=== PATIENT | female | born 1990 | race Two or more races ===

== ENCOUNTER 2019-04-30 11:25 | Observation (INO) | payer MEDICAID ==
[~2019-04-30 11:25] MED LIST: ACET-327 GT; PREN1TAB52 PO
[2019-04-30 13:37] VITALS: BP 102/57
[2019-04-30] MEDS ORDERED: INFLUENZA VIRUS VACCINE QVS 2019-20 (3YR+)/PF 60 MCG/0.5 ML SYRINGE IM ONE (13:45)
[2019-05-08] MEDS ORDERED: PREN1TAB80 PO (16:41)
== END 2019-04-30 14:15 | disposition home or self-care (01) ==
LOC: 4S 11:25
PROVIDERS: ADMIT Obstetrics & Gynecology; ATTEND Obstetrics & Gynecology
DX: O62.9 Abnormality of forces of labor, unspecified (principal); Z3A.32 32 weeks gestation of pregnancy

== ENCOUNTER 2019-05-04 21:58 | Observation (INO) | payer MEDICAID ==
[2019-05-05 00:12] VITALS: BP 100/60
[2019-05-08] MEDS ORDERED: PREN1TAB80 PO (16:41)
== END 2019-05-05 04:55 | disposition home or self-care (01) ==
LOC: 4S 21:58
PROVIDERS: ADMIT Obstetrics & Gynecology; ATTEND Obstetrics & Gynecology
DX: O46.8X3 Other antepartum hemorrhage, third trimester (principal); O26.893 Other specified pregnancy related conditions, third trimester; R10.30 Lower abdominal pain, unspecified; Z3A.32 32 weeks gestation of pregnancy
CPT/HCPCS: 76815; 81002; 82731; G0378 ×2

== ENCOUNTER 2019-05-08 16:41 | Observation (INO) | payer MEDICAID ==
[~2019-05-08] VITALS: Ht 162.6 cm; Wt 79.0 kg
[~2019-05-08 16:41] MED LIST changes: +PREN1TAB80 PO
[2019-05-08] MEDS ORDERED: RINGERS SOLUTION,LACTATED 1,000 ML IV SCH (17:15)
[2019-05-08 17:46] LABS: ANION GAP 10 mmol/L (8-16); CARBON DIOXIDE 25 mmol/L (22-29); CHLORIDE 105 mmol/L (98-107); CREATININE 0.52 mg/dL (0.60-1.30); GLOMERULAR FILTR. RATE CALC > 60 mL/min (>60); GLUCOSE,RANDOM 75 mg/dL (70-110); POTASSIUM 4.2 mmol/L (3.5-5.1); SODIUM SERUM 140 mmol/L (136-145); UREA NITROGEN, BLOOD 9 mg/dL (7-18)
[2019-05-08 17:52] LABS: ALANINE AMINOTRANSFERASE 19 U/L (12-78); ALBUMIN 2.6 g/dL (3.4-5.0); ALKALINE PHOSPHATASE 106 U/L (46-116); ASPARTATE AMINOTRANSFERASE 16 U/L (15-37); BILIRUBIN,TOTAL 0.3 mg/dL (0.1-1.0); TOTAL PROTEIN, SERUM 5.8 g/dL (6.4-8.2)
[2019-05-08] MEDS: BETAMETHASONE SOLUSPAN 6 MG/ML 5 ML VIAL IM SCH (18:29)
[2019-05-08 18:36] LABS: APPEARANCE,URINE CLOUDY (CLEAR); GLUCOSE, URINE (UA) 100 mg/dL (NEGATIVE); KETONES,URINE TRACE mg/dL (NEGATIVE); LEUKOCYTE ESTERASE ,URINE MODERATE (NEGATIVE); NITRATE,URINE NEGATIVE (NEGATIVE); OCCULT BLOOD,URINE NEGATIVE (NEGATIVE); PROTEIN,URINE TRACE (NEGATIVE)
[2019-05-08 18:38] LABS: BILIRUBIN,URINE PRELIM. POSITIVE (NEGATIVE)
[2019-05-08 18:57] LABS: BACTERIA,URINE Many /HPF (None Seen); RBC,URINE None Seen /HPF (0-2); SQUAMOUS EPITHELIAL CELL,UR Many /LPF (None Seen)
[2019-05-08 22:14] VITALS: BP 93/52
[2019-05-09] MEDS: BETAMETHASONE SOLUSPAN 6 MG/ML 5 ML VIAL IM SCH (06:31)
== END 2019-05-09 12:15 | disposition home or self-care (01) ==
LOC: 4S 16:41
PROVIDERS: ADMIT Obstetrics & Gynecology; ATTEND Obstetrics & Gynecology
DX: O46.93 Antepartum hemorrhage, unspecified, third trimester (principal); Z3A.32 32 weeks gestation of pregnancy
CPT/HCPCS: 36415; 76805; 80053; 81001; 87086; 96372 ×2; G0378 ×2; J0702 ×2; J7120

== ENCOUNTER 2019-05-16 15:30 | Observation (INO) | payer MEDICAID ==
[~2019-05-16] VITALS: Ht 162.6 cm; Wt 79.8 kg
[~2019-05-16 15:30] MED LIST changes: -ACET-327 GT; -PREN1TAB52 PO
== END 2019-05-16 18:47 | disposition home or self-care (01) ==
LOC: 4S 15:30
PROVIDERS: ADMIT Obstetrics & Gynecology; ATTEND Obstetrics & Gynecology
DX: O42.913 Preterm premature rupture of membranes, unspecified as to length of time between rupture and onset of labor, third trimester (principal); O60.03 Preterm labor without delivery, third trimester; Z3A.33 33 weeks gestation of pregnancy
CPT/HCPCS: 76815; G0378

== ENCOUNTER 2019-06-18 12:33 | Observation (INO) | payer MEDICAID ==
[~2019-06-18] VITALS: Ht 160 cm; Wt 83.5 kg
[2019-06-18] MEDS ORDERED: PREN-217 PO (13:34)
[2019-06-18 13:35] VITALS: BP 113/52
== END 2019-06-18 13:30 | disposition home or self-care (01) ==
LOC: 4S 12:33
PROVIDERS: ADMIT Obstetrics & Gynecology Obstetrics; ATTEND Obstetrics & Gynecology Obstetrics
DX: O62.9 Abnormality of forces of labor, unspecified (principal); Z3A.39 39 weeks gestation of pregnancy

== ENCOUNTER 2019-06-23 13:15 | Inpatient (IN) | payer MEDICAID ==
[~2019-06-23] VITALS: Ht 165.1 cm; Wt 86.2 kg
[~2019-06-23 13:15] MED LIST changes: +PREN-217 PO
[2019-06-23] MEDS ORDERED: RINGERS SOLUTION,LACTATED 1,000 ML IV PRN (13:21)
[2019-06-23] MEDS ORDERED: OXYTOCIN 30 UNITS/LACT RINGERS 500 ML IV ONE (13:21)
[2019-06-23 13:30] VITALS: BP 106/59
[2019-06-23] MEDS ORDERED: METOCLOPRAMIDE HCL 5 MG/ML 2 ML VIAL IVP PRN (13:30)
[2019-06-23] MEDS ORDERED: CITRIC ACID/SODIUM CITRATE 30 ML SOLUTION UDCUP PO PRN (13:30)
[2019-06-23] MEDS ORDERED: TERBUTALINE SULFATE 1 MG/ML VIAL SQ PRN (13:30)
[2019-06-23] MEDS ORDERED: AMPICILLIN SODIUM 2 GM/NS 100 ML IV ONE (14:30)
[2019-06-23 14:37] LABS: BASOPHILS % (AUTO) 0.7 % (0.0-2.0); EOSINOPHILS % (AUTO) 1.2 % (1.0-6.0); HEMATOCRIT 32.7 % (36-46); HEMOGLOBIN 10.7 g/dL (12.0-16.0); LYMPHOCYTES # (AUTO) 1.7 K/uL (1.0-4.8); LYMPHOCYTES % (AUTO) 37.3 % (22.0-44.0); MEAN CORPUSCULAR HEMOGLOBIN 28.7 pg (26.0-34.0); MEAN CORPUSCULAR HGB CONC 32.8 G/dL (31.0-37.0); MEAN CORPUSCULAR VOLUME 88 fL (80-100); MONOCYTES # (AUTO) 0.5 K/uL (0.1-1.0); MONOCYTES % (AUTO) 11.1 % (2.0-9.0); NEUTROPHILS # (AUTO) 2.2 K/uL (1.8-7.7); NEUTROPHILS % (AUTO) 49.7 % (40.0-70.0); PLATELET COUNT (AUTO) 163 K/uL (150-450); RED BLOOD CELL COUNT(AUTO) 3.73 MIL/uL (4.00-5.20); RED CELL DISTRIBUTION WIDTH 14.6 % (11.5-14.5)
[2019-06-23] MEDS ORDERED: DINOPROSTONE 10 MG VAGINAL SUPPOSITORY VG ONE (15:00)
[2019-06-23] MEDS: RINGERS SOLUTION,LACTATED 1,000 ML IV SCH ×2 (15:48→22:04)
[2019-06-23] MEDS ORDERED: OXYGEN THERAPY IH SCH (20:00)
[2019-06-24] MEDS: FentaNYL CITRATE-PF 100 MCG/2 ML VIAL IVP PRN ×2 (00:18→00:22)
[2019-06-24] MEDS: AMPICILLIN SODIUM 1 GM/NS 50 ML IV SCH ×3 (01:15→09:31)
[2019-06-24] MEDS: BUTORPHANOL TARTRATE 2 MG/ML VIAL IVP PRN ×2 (02:08→08:43)
[2019-06-24] MEDS ORDERED: -PHARMACY NOTE- MISC ONE (03:00)
[2019-06-24] MEDS: RINGERS SOLUTION,LACTATED 1,000 ML IV SCH (06:48)
== END 2019-06-24 13:35 | disposition home or self-care (01) | DRG 566 ==
LOC: 4S 13:15 → OBSVTOIN 13:15
PROVIDERS: ADMIT Obstetrics & Gynecology; ATTEND Obstetrics & Gynecology
DX: O99.820 Streptococcus B carrier state complicating pregnancy (principal); Z3A.39 39 weeks gestation of pregnancy
CPT/HCPCS: 86850; 86900; 86901; J0290; J0595; J2590; J3010; J7120

== ENCOUNTER 2019-06-26 23:21 | Inpatient (IN) | payer MEDICAID ==
[~2019-06-26] VITALS: Ht 162.6 cm; Wt 86.6 kg
[2019-06-26 23:51] VITALS: BP 124/75
[2019-06-27] MEDS ORDERED: RINGERS SOLUTION,LACTATED 1,000 ML IV PRN (00:22)
[2019-06-27] MEDS ORDERED: OXYTOCIN 30 UNITS/LACT RINGERS 500 ML IV ONE ×2 (00:22→09:48)
[2019-06-27] MEDS ORDERED: OXYTOCIN 30 UNITS/LACT RINGERS 500 ML IV PRN (00:22)
[2019-06-27] MEDS ORDERED: CITRIC ACID/SODIUM CITRATE 30 ML SOLUTION UDCUP PO PRN (00:30)
[2019-06-27] MEDS ORDERED: METHYLERGONOVINE MALEATE 0.2 MG/ML VIAL IM PRN (00:30)
[2019-06-27] MEDS ORDERED: METOCLOPRAMIDE HCL 5 MG/ML 2 ML VIAL IVP PRN (00:30)
[2019-06-27] MEDS ORDERED: TERBUTALINE SULFATE 1 MG/ML VIAL SQ PRN (00:30)
[2019-06-27] MEDS ORDERED: AMPICILLIN SODIUM 2 GM/NS 100 ML IV ONE (00:30)
[2019-06-27] MEDS: RINGERS SOLUTION,LACTATED 1,000 ML IV SCH ×2 (00:54→07:59)
[2019-06-27 02:28] LABS: BASOPHILS % (AUTO) 0.6 % (0.0-2.0); EOSINOPHILS % (AUTO) 0.7 % (1.0-6.0); HEMATOCRIT 30.4 % (36-46); HEMOGLOBIN 9.9 g/dL (12.0-16.0); LYMPHOCYTES # (AUTO) 2.1 K/uL (1.0-4.8); LYMPHOCYTES % (AUTO) 46.9 % (22.0-44.0); MEAN CORPUSCULAR HEMOGLOBIN 28.3 pg (26.0-34.0); MEAN CORPUSCULAR HGB CONC 32.6 G/dL (31.0-37.0); MEAN CORPUSCULAR VOLUME 87 fL (80-100); MONOCYTES # (AUTO) 0.6 K/uL (0.1-1.0); NEUTROPHILS # (AUTO) 1.7 K/uL (1.8-7.7); NEUTROPHILS % (AUTO) 38.8 % (40.0-70.0); PLATELET COUNT (AUTO)-OB 168 K/uL (150-450); RED CELL DISTRIBUTION WIDTH 14.5 % (11.5-14.5)
[2019-06-27] MEDS: AMPICILLIN SODIUM 1 GM/NS 50 ML IV SCH ×2 (07:21→11:24)
[2019-06-27] MEDS: FentaNYL CITRATE-PF 100 MCG/2 ML VIAL IVP PRN ×3 (07:21→11:59)
[2019-06-27] MEDS ORDERED: OXYGEN THERAPY IH SCH (08:00)
[2019-06-27] MEDS ORDERED: OxyCODONE HCL/ACETAMINOPHEN 5-325 MG TABLET PO PRN ×2 (10:00)
[2019-06-27] MEDS ORDERED: LIDOCAINE/PF 1% 30 ML VIAL INJ PRN (10:00)
[2019-06-27] MEDS ORDERED: GLYCERIN/WITCH HAZEL LEAF 40 PADS JAR TP PRN (10:00)
[2019-06-27] MEDS ORDERED: BENZOCAINE 20%/MENTHOL 56 GM SPRAY CANISTER TP PRN (10:00)
[2019-06-27] MEDS ORDERED: LANOLIN 7 GM OINTMENT TP PRN (10:00)
[2019-06-27] MEDS ORDERED: MAGNESIUM HYDROXIDE SUSPENSION 30 ML UDCUP PO PRN (10:00)
[2019-06-27] MEDS ORDERED: MINERAL OIL 30 ML UDCUP VG ONE (11:00)
[2019-06-27] MEDS ORDERED: CARBOPROST TROMETHAMINE 250 MCG/ML AMP IM PRN (11:45)
[2019-06-27] MEDS: IBUPROFEN 800 MG TABLET PO PRN (15:22)
[2019-06-27] MEDS ORDERED: SOD FERRIC GLUC COMPLX/SUCROSE 125 MG in SODIUM CHLORIDE 0.9% 100 ML IV ONE (16:00)
[2019-06-27] MEDS: ACETAMINOPHEN 325 MG TABLET PO PRN (20:45)
[2019-06-28] MEDS: IBUPROFEN 800 MG TABLET PO PRN (06:24)
[2019-06-28] MEDS: ACETAMINOPHEN 325 MG TABLET PO PRN (06:24)
[2019-06-28 07:09] LABS: BASOPHILS % (AUTO) 0.3 % (0.0-2.0); EOSINOPHILS % (AUTO) 0.3 % (1.0-6.0); HEMATOCRIT 32.6 % (36-46); HEMOGLOBIN 11.2 g/dL (12.0-16.0); LYMPHOCYTES # (AUTO) 2.6 K/uL (1.0-4.8); LYMPHOCYTES % (AUTO) 25.8 % (22.0-44.0); MEAN CORPUSCULAR HEMOGLOBIN 30.2 pg (26.0-34.0); MEAN CORPUSCULAR HGB CONC 34.3 G/dL (31.0-37.0); MEAN CORPUSCULAR VOLUME 88 fL (80-100); MONOCYTES # (AUTO) 1.3 K/uL (0.1-1.0); MONOCYTES % (AUTO) 12.4 % (2.0-9.0); NEUTROPHILS # (AUTO) 6.2 K/uL (1.8-7.7); NEUTROPHILS % (AUTO) 61.2 % (40.0-70.0); PLATELET COUNT (AUTO)-OB 165 K/uL (150-450); RED CELL DISTRIBUTION WIDTH 14.9 % (11.5-14.5)
[2019-06-28] MEDS ORDERED: DOCU-275 PO (08:52)
[2019-06-28] MEDS ORDERED: IBUP-2070 PO (08:52)
== END 2019-06-28 16:20 | disposition home or self-care (01) | DRG 560 ==
LOC: OBSVTOIN 23:21 → 4S 23:21
PROVIDERS: ADMIT Obstetrics & Gynecology; ATTEND Obstetrics & Gynecology
PROC: 10E0XZZ Delivery of Products of Conception, External Approach (ICD-10-PCS; principal; 2019-06-27)
DX: O99.824 Streptococcus B carrier state complicating childbirth (principal); Z37.0 Single live birth; Z3A.40 40 weeks gestation of pregnancy
CPT/HCPCS: 86850; 86900; 86901; J0290; J2210; J2590; J2916; J3010; J3490; J7050; J7120

== ENCOUNTER 2020-03-04 14:21 | Emergency (ER) | payer MEDICAID ==
[~2020-03-04] VITALS: Ht 162.6 cm; Wt 63.6 kg
[~2020-03-04 14:21] MED LIST changes: +DOCU-275 PO; +IBUP-2070 PO; -PREN1TAB80 PO
[2020-03-04 15:07] LABS: BASOPHILS % (AUTO) 0.8 % (0.0-2.0); EOSINOPHILS % (AUTO) 1.2 % (1.0-6.0); HEMOGLOBIN 12.4 g/dL (12.0-16.0); LYMPHOCYTES % (AUTO) 25.7 % (22.0-44.0); MEAN CORPUSCULAR HEMOGLOBIN 31.4 pg (26.0-34.0); MEAN CORPUSCULAR HGB CONC 34.4 G/dL (31.0-37.0); MEAN CORPUSCULAR VOLUME 91 fL (80-100); MONOCYTES # (AUTO) 0.6 K/uL (0.1-1.0); MONOCYTES % (AUTO) 8.1 % (2.0-9.0); NEUTROPHILS % (AUTO) 64.2 % (40.0-70.0); PLATELET COUNT (AUTO) 174 K/uL (150-450); RED BLOOD CELL COUNT(AUTO) 3.95 MIL/uL (4.00-5.20); RED CELL DISTRIBUTION WIDTH 13.6 % (11.5-14.5)
[2020-03-04 15:24] LABS: ANION GAP 11 mmol/L (8-16); CALCIUM, TOTAL 8.4 mg/dL (8.8-10.5); CARBON DIOXIDE 22 mmol/L (22-29); CHLORIDE 103 mmol/L (98-107); CREATININE 0.57 mg/dL (0.60-1.30); GLOMERULAR FILTR. RATE CALC > 60 mL/min (>60); GLUCOSE,RANDOM 77 mg/dL (70-110); POTASSIUM 3.8 mmol/L (3.5-5.1); SODIUM SERUM 136 mmol/L (136-145); UREA NITROGEN, BLOOD 9 mg/dL (7-18)
[2020-03-04 15:29] LABS: GLUCOSE,POINT OF CARE 75 MG/DL (70-110)
[2020-03-04 15:50] LABS: APPEARANCE,URINE CLOUDY (CLEAR); BILIRUBIN,URINE NEGATIVE (NEGATIVE); GLUCOSE, URINE (UA) NEGATIVE (NEGATIVE); KETONES,URINE >=80 mg/dL (NEGATIVE); LEUKOCYTE ESTERASE ,URINE SMALL (NEGATIVE); NITRATE,URINE NEGATIVE (NEGATIVE); OCCULT BLOOD,URINE NEGATIVE (NEGATIVE); PH,URINE 6.5 (5.0-8.0); PROTEIN,URINE POS 1+ (NEGATIVE)
[2020-03-04 15:51] LABS: ALANINE AMINOTRANSFERASE 16 U/L (12-78); ALBUMIN 2.6 g/dL (3.4-5.0); ALKALINE PHOSPHATASE 69 U/L (46-116); ASPARTATE AMINOTRANSFERASE 16 U/L (15-37); BILIRUBIN,TOTAL 0.2 mg/dL (0.1-1.0); HCG,QUANTITATIVE 3096 mIU/mL (0-6); TOTAL PROTEIN, SERUM 6.5 g/dL (6.4-8.2)
[2020-03-04 16:08] LABS: BACTERIA,URINE Many /HPF (None Seen); RBC,URINE None Seen /HPF (0-2)
[2020-03-04 16:09] LABS: MUCUS,URINE Few LPF (None Seen); SQUAMOUS EPITHELIAL CELL,UR Many /LPF (None Seen)
[2020-03-04 17:00] VITALS: BP 119/69
== END 2020-03-04 17:34 | disposition home or self-care (01) ==
LOC: EMS 14:21
DX: O23.42 Unspecified infection of urinary tract in pregnancy, second trimester (principal); O26.892 Other specified pregnancy related conditions, second trimester; R10.30 Lower abdominal pain, unspecified; R42 Dizziness and giddiness; Z3A.25 25 weeks gestation of pregnancy
CPT/HCPCS: 76805; 82948; 87086; 93005

== ENCOUNTER 2020-05-16 17:07 | Observation (INO) | payer MEDICAID ==
[~2020-05-16 17:07] MED LIST changes: -IBUP-2070 PO; +INSNPH SQ; +INSREG SQ; +LANC-893 TP; +TEST STRIPS; +[UNRECOGNIZED DRUG - SUPPLY]
[2020-05-16 17:20] VITALS: BP 121/70
[2020-05-16 18:33] LABS: GLUCOMETER DEV NAME(LOC) 4S.; GLUCOSE,POINT OF CARE 143 MG/DL (70-110)
== END 2020-05-16 18:05 | disposition home or self-care (01) ==
LOC: 4S 17:07
PROVIDERS: ADMIT Obstetrics & Gynecology Obstetrics; ATTEND Obstetrics & Gynecology
DX: Z34.93 Encounter for supervision of normal pregnancy, unspecified, third trimester (principal); Z3A.34 34 weeks gestation of pregnancy
CPT/HCPCS: 59025; 99219

== ENCOUNTER 2020-05-19 15:51 | Observation (INO) | payer MEDICAID ==
[2020-05-19 17:37] VITALS: BP 110/61
[2020-05-23 14:53] LABS: GLUCOMETER DEV NAME(LOC) 4S.; GLUCOSE,POINT OF CARE 92 MG/DL (70-110)
== END 2020-05-19 19:10 | disposition home or self-care (01) ==
LOC: INTOOBSV 15:51 → OBSVTOIN 15:51 → 4S 15:51 → UNDOADMOB 15:51 → 4S 16:50
PROVIDERS: ADMIT Obstetrics & Gynecology Obstetrics; ATTEND Obstetrics & Gynecology Obstetrics
DX: O24.419 Gestational diabetes mellitus in pregnancy, unspecified control (principal); Z3A.35 35 weeks gestation of pregnancy
CPT/HCPCS: 59025; 99219

== ENCOUNTER 2020-05-27 17:05 | Observation (INO) | payer MEDICAID ==
[~2020-05-27] VITALS: Ht 162.6 cm; Wt 96.6 kg
[2020-05-27 17:29] VITALS: BP 112/72
[2020-05-27 18:09] LABS: GLUCOMETER DEV NAME(LOC) 4S.; GLUCOSE,POINT OF CARE 215 MG/DL (70-110)
[2020-05-27] MEDS ORDERED: INSULIN LISPRO 100 UNITS/ML SQ ONE (19:00)
[2020-05-27 20:23] LABS: GLUCOMETER DEV NAME(LOC) 4S.; GLUCOSE,POINT OF CARE 88 MG/DL (70-110)
== END 2020-05-27 20:49 | disposition home or self-care (01) ==
LOC: 4S 17:05
PROVIDERS: ADMIT Obstetrics & Gynecology Obstetrics; ATTEND Obstetrics & Gynecology Obstetrics
DX: O24.419 Gestational diabetes mellitus in pregnancy, unspecified control (principal); Z3A.36 36 weeks gestation of pregnancy
CPT/HCPCS: 59025; 96372; 99219; J1815

== ENCOUNTER 2020-06-03 17:07 | Observation (INO) | payer MEDICAID ==
[2020-06-03 18:16] VITALS: BP 106/62
[2020-06-06 12:51] LABS: GLUCOMETER DEV NAME(LOC) 4S.; GLUCOSE,POINT OF CARE 109 MG/DL (70-110)
== END 2020-06-03 21:06 | disposition home or self-care (01) ==
LOC: 4S 17:07
PROVIDERS: ADMIT Student in an Organized Health Care Education/Training Program; ATTEND Student in an Organized Health Care Education/Training Program
DX: Z34.93 Encounter for supervision of normal pregnancy, unspecified, third trimester (principal); Z3A.37 37 weeks gestation of pregnancy
CPT/HCPCS: 99219

== ENCOUNTER 2020-06-04 22:14 | Observation (INO) | payer MEDICAID ==
[~2020-06-04] VITALS: Ht 162.6 cm; Wt 98.0 kg
[2020-06-04 23:04] LABS: GLUCOMETER DEV NAME(LOC) 4S.; GLUCOSE,POINT OF CARE 143 MG/DL (70-110)
[2020-06-05 00:02] VITALS: BP 117/76
== END 2020-06-04 23:52 | disposition home or self-care (01) ==
LOC: 4S 22:14
PROVIDERS: ADMIT Obstetrics & Gynecology Obstetrics; ATTEND Obstetrics & Gynecology Obstetrics
DX: O62.9 Abnormality of forces of labor, unspecified (principal); Z3A.37 37 weeks gestation of pregnancy
CPT/HCPCS: 59025; 96360; 99219

== ENCOUNTER 2020-06-06 14:05 | Observation (INO) | payer MEDICAID ==
[~2020-06-06] VITALS: Ht 162.6 cm; Wt 98.0 kg
[2020-06-06] MEDS ORDERED: INSNPH SQ (14:31)
[2020-06-06 14:38] VITALS: BP 109/58
[2020-06-06 15:05] LABS: GLUCOMETER DEV NAME(LOC) 4S.; GLUCOSE,POINT OF CARE 77 MG/DL (70-110)
== END 2020-06-06 16:45 | disposition home or self-care (01) ==
LOC: 4S 14:05
PROVIDERS: ADMIT Obstetrics & Gynecology Obstetrics; ATTEND Obstetrics & Gynecology Obstetrics
DX: O62.9 Abnormality of forces of labor, unspecified (principal); Z3A.37 37 weeks gestation of pregnancy
CPT/HCPCS: 59025; 99219

== ENCOUNTER 2020-06-06 21:58 | Inpatient (IN) | payer MEDICAID ==
[~2020-06-06] VITALS: Ht 162.6 cm; Wt 98.4 kg
[2020-06-07 19:06] LABS: GLUCOMETER DEV NAME(LOC) 4S.; GLUCOSE,POINT OF CARE 136 MG/DL (70-110)
[2020-06-07] MEDS ORDERED: OXYTOCIN 30 UNITS/LACT RINGERS 500 ML IV ONE (19:15)
[2020-06-07] MEDS ORDERED: RINGERS SOLUTION,LACTATED 1,000 ML IV PRN (19:15)
[2020-06-07] MEDS ORDERED: CITRIC ACID/SODIUM CITRATE 30 ML SOLUTION UDCUP PO PRN (19:15)
[2020-06-07] MEDS ORDERED: METHYLERGONOVINE MALEATE 0.2 MG/ML VIAL IM PRN (19:15)
[2020-06-07] MEDS ORDERED: METOCLOPRAMIDE HCL 5 MG/ML 2 ML VIAL IVP PRN (19:15)
[2020-06-07] MEDS ORDERED: OXYTOCIN 30 UNITS/LACT RINGERS 500 ML IV PRN ×2 (19:15→22:46)
[2020-06-07 19:26] VITALS: BP 119/71
[2020-06-07 19:45] LABS: BASOPHILS % (AUTO) 0.3 % (0.0-2.0); HEMATOCRIT 31.9 % (36-46); HEMOGLOBIN 10.6 g/dL (12.0-16.0); LYMPHOCYTES # (AUTO) 2.1 K/uL (1.0-4.8); LYMPHOCYTES % (AUTO) 33.9 % (22.0-44.0); MEAN CORPUSCULAR HEMOGLOBIN 27.9 pg (26.0-34.0); MEAN CORPUSCULAR HGB CONC 33.1 G/dL (31.0-37.0); MEAN CORPUSCULAR VOLUME 84 fL (80-100); MONOCYTES # (AUTO) 0.6 K/uL (0.1-1.0); MONOCYTES % (AUTO) 10.5 % (2.0-9.0); NEUTROPHILS # (AUTO) 3.3 K/uL (1.8-7.7); NEUTROPHILS % (AUTO) 53.3 % (40.0-70.0); PLATELET COUNT (AUTO)-OB 148 K/uL (150-450); RED BLOOD CELL COUNT(AUTO) 3.79 MIL/uL (4.00-5.20); RED CELL DISTRIBUTION WIDTH 16.4 % (11.5-14.5)
[2020-06-07] MEDS ORDERED: OXYGEN THERAPY IH SCH (20:00)
[2020-06-07] MEDS ORDERED: INFLUENZA VIRUS VACCINE QVS 2020-21 (6MO+)/PF 60 MCG/0.5 ML SYRINGE IM ONE (20:00)
[2020-06-07] MEDS: RINGERS SOLUTION,LACTATED 1,000 ML IV SCH (20:22)
[2020-06-07 21:09] LABS: COVID AG,FIA SOURCE NASOPHARYNGEAL
[2020-06-07] MEDS ORDERED: INSULIN NPH, HUMAN ISOPHANE 100 UNITS/ML SQ ONE (21:45)
[2020-06-08 00:25] LABS: GLUCOMETER DEV NAME(LOC) 4S.; GLUCOSE,POINT OF CARE 115 MG/DL (70-110)
[2020-06-08] MEDS: RINGERS SOLUTION,LACTATED 1,000 ML IV SCH ×2 (04:04→13:11)
[2020-06-08 06:21] LABS: GLUCOMETER DEV NAME(LOC) 4S.; GLUCOSE,POINT OF CARE 105 MG/DL (70-110)
[2020-06-08] MEDS ORDERED: INSULIN LISPRO 100 UNITS/ML SQ ONE (06:30)
[2020-06-08] MEDS ORDERED: INSULIN NPH, HUMAN ISOPHANE 100 UNITS/ML SQ ONE (06:30)
[2020-06-08 09:19] LABS: GLUCOMETER DEV NAME(LOC) 4S.; GLUCOSE,POINT OF CARE 80 MG/DL (70-110)
[2020-06-08 09:19] LABS: GLUCOMETER DEV NAME(LOC) 4S.; GLUCOSE,POINT OF CARE 86 MG/DL (70-110)
[2020-06-08] MEDS: FentaNYL CITRATE PF 100 MCG/2 ML VIAL IVP PRN ×3 (11:09→13:24)
[2020-06-08 12:17] LABS: GLUCOMETER DEV NAME(LOC) 4S.; GLUCOSE,POINT OF CARE 83 MG/DL (70-110)
[2020-06-08 14:28] LABS: GLUCOMETER DEV NAME(LOC) 4S.; GLUCOSE,POINT OF CARE 92 MG/DL (70-110)
[2020-06-08] MEDS ORDERED: MISOPROSTOL 100 MCG TABLET ONE ×2 (15:10→16:11)
[2020-06-08] MEDS ORDERED: LIDOCAINE/PF 1% 30 ML VIAL ONE (15:10)
[2020-06-08] MEDS ORDERED: TRANEXAMIC ACID 1,000 MG in DEXTROSE 5%-WATER 50 ML IV ONE (15:15)
[2020-06-08] MEDS ORDERED: LANOLIN 7 GM OINTMENT TP PRN (15:45)
[2020-06-08] MEDS ORDERED: BENZOCAINE 20%/MENTHOL 56 GM SPRAY CANISTER TP PRN (15:45)
[2020-06-08] MEDS ORDERED: LIDOCAINE/PF 1% 30 ML VIAL SQ PRN (15:45)
[2020-06-08] MEDS ORDERED: GLYCERIN/WITCH HAZEL LEAF 40 PADS JAR TP PRN (15:45)
[2020-06-08] MEDS ORDERED: OXYTOCIN 30 UNITS/LACT RINGERS 500 ML IV ONE (15:45)
[2020-06-08] MEDS ORDERED: MISOPROSTOL 100 MCG TABLET PR ONE (16:15)
[2020-06-08] MEDS: MAGNESIUM HYDROXIDE SUSPENSION 30 ML UDCUP PO PRN (20:37)
[2020-06-09] MEDS: IBUPROFEN 800 MG TABLET PO PRN ×3 (00:01→16:31)
[2020-06-09] MEDS: RINGERS SOLUTION,LACTATED 1,000 ML IV SCH (06:15)
[2020-06-09] MEDS ORDERED: MIDAZOLAM HCL 2 MG/2 ML VIAL ONE (07:03)
[2020-06-09] MEDS ORDERED: BUPIVACAINE HCL/DEX-WATER/PF 0.75% 2 ML AMP ITH ONE (07:03)
[2020-06-09] MEDS ORDERED: FentaNYL CITRATE PF 100 MCG/2 ML VIAL ONE (07:03)
[2020-06-09] MEDS ORDERED: HYDROmorphone 2 MG/ML VIAL IVP PRN (08:15)
[2020-06-09] MEDS ORDERED: MEPERIDINE-PF 25 MG/ML VIAL IVP PRN (08:15)
[2020-06-09] MEDS ORDERED: FentaNYL CITRATE PF 100 MCG/2 ML VIAL IVP PRN (08:15)
[2020-06-09] MEDS: OxyCODONE HCL/ACETAMINOPHEN 5-325 MG TABLET PO PRN ×4 (10:32→21:25)
[2020-06-09 13:32] LABS: BASOPHILS % (AUTO) 0.4 % (0.0-2.0); EOSINOPHILS % (AUTO) 0.5 % (1.0-6.0); HEMATOCRIT 29.2 % (36-46); HEMOGLOBIN 9.5 g/dL (12.0-16.0); LYMPHOCYTES # (AUTO) 2.1 K/uL (1.0-4.8); LYMPHOCYTES % (AUTO) 26.7 % (22.0-44.0); MEAN CORPUSCULAR HEMOGLOBIN 27.4 pg (26.0-34.0); MEAN CORPUSCULAR HGB CONC 32.5 G/dL (31.0-37.0); MEAN CORPUSCULAR VOLUME 84 fL (80-100); MONOCYTES # (AUTO) 0.8 K/uL (0.1-1.0); MONOCYTES % (AUTO) 9.8 % (2.0-9.0); NEUTROPHILS # (AUTO) 4.9 K/uL (1.8-7.7); NEUTROPHILS % (AUTO) 62.6 % (40.0-70.0); PLATELET COUNT (AUTO)-OB 139 K/uL (150-450); RED BLOOD CELL COUNT(AUTO) 3.46 MIL/uL (4.00-5.20); RED CELL DISTRIBUTION WIDTH 16.4 % (11.5-14.5)
[2020-06-09] MEDS ORDERED: OXYGEN THERAPY IH SCH (20:00)
[2020-06-10] MEDS: OxyCODONE HCL/ACETAMINOPHEN 5-325 MG TABLET PO PRN ×2 (02:28→06:39)
[2020-06-10] MEDS ORDERED: ONDANSETRON HCL 4 MG/2 ML VIAL IVP ONE (06:23)
[2020-06-10] MEDS ORDERED: EPHEDrine SULFATE 50 MG/ML VIAL IM ONE (06:23)
[2020-06-10] MEDS: IBUPROFEN 800 MG TABLET PO PRN (06:39)
[2020-06-10] MEDS: MAGNESIUM HYDROXIDE SUSPENSION 30 ML UDCUP PO PRN (08:39)
[2020-06-10] MEDS ORDERED: IBUP-2070 PO (10:20)
[2020-06-10] MEDS ORDERED: HYDR-4723 PO (10:22)
== END 2020-06-10 10:55 | disposition home or self-care (01) | DRG 541 ==
LOC: OBSVTOIN 06-07 18:01 → 4S 06-07 18:01
PROVIDERS: ADMIT Obstetrics & Gynecology; ATTEND Obstetrics & Gynecology Obstetrics
PROC: 10E0XZZ Delivery of Products of Conception, External Approach (ICD-10-PCS; principal; 2020-06-08)
PROC: 0HQ9XZZ Repair Perineum Skin, External Approach (ICD-10-PCS; 2020-06-08)
PROC: 0UB70ZZ Excision of Bilateral Fallopian Tubes, Open Approach (ICD-10-PCS; 2020-06-09)
DX: O69.81X0 Labor and delivery complicated by cord around neck, without compression, not applicable or unspecified (principal); O24.429 Gestational diabetes mellitus in childbirth, unspecified control; O70.0 First degree perineal laceration during delivery; Z3A.38 38 weeks gestation of pregnancy; Z37.0 Single live birth; Z20.822 Contact with and (suspected) exposure to COVID-19
CPT/HCPCS: 86850; 86900; 86901; 86923; 87426; 88302; 99219; J0690; J1815; J2250; J2405; J2590; J3010; J3490; J7060; J7120

== ENCOUNTER 2022-03-06 10:37 | Emergency (ER) | payer MEDICAID ==
[~2022-03-06] VITALS: Ht 165.1 cm; Wt 79.5 kg
[~2022-03-06 10:37] MED LIST changes: -DOCU-275 PO; +HYDR-4723 PO; +IBUP-2070 PO; -INSNPH SQ; -INSREG SQ
[2022-03-06] MEDS ORDERED: LIDOCAINE 1%/EPI 1:200,000/PF 30 ML VIAL PERC ONE (12:00)
[2022-03-06] MEDS ORDERED: POVIDONE-IODINE 10% 15 ML SOLUTION UD TP ONE (12:15)
[2022-03-06] MEDS ORDERED: CEPH-558 PO (13:14)
[2022-03-06] MEDS ORDERED: SULF-261 PO (13:15)
[2022-03-06] MEDS ORDERED: IBUP-2070 PO (13:17)
[2022-03-06 13:38] VITALS: BP 127/86
== END 2022-03-06 13:42 | disposition home or self-care (01) ==
LOC: EMS 10:41
DX: L03.317 Cellulitis of buttock (principal); L02.31 Cutaneous abscess of buttock
CPT/HCPCS: 10060; 99282; J3490

== ENCOUNTER 2022-03-08 08:44 | Emergency (ER) | payer MEDICAID ==
[~2022-03-08] VITALS: Ht 162.6 cm; Wt 77.3 kg
[~2022-03-08 08:44] MED LIST changes: +CEPH-558 PO; -HYDR-4723 PO; -LANC-893 TP; -PREN-217 PO; +SULF-261 PO; -TEST STRIPS; -[UNRECOGNIZED DRUG - SUPPLY]
[2022-03-08 08:49] VITALS: BP 115/62
== END 2022-03-08 09:20 | disposition home or self-care (01) ==
LOC: EMS 08:45
DX: Z48.00 Encounter for change or removal of nonsurgical wound dressing (principal); L02.31 Cutaneous abscess of buttock
CPT/HCPCS: 99282; Z7502